=== PATIENT | female | born 1975 | race Caucasian/White ===

== ENCOUNTER 2018-04-20 19:51 | Emergency (ER) ==
[2018-04-20 20:00] VITALS: BP 122/83; TEMP 97.8; BMI 43.8
--- NOTE | 2018-04-20 20:09 | ED.PDOC ---
General ED Provider: Dr. CASSIUS MOREAU-ER Chief Complaint: Respiratory Complaint Stated Complaint: my sinuses are draining and my eye is red and mattering Time Seen by Physician: 20:07 Mode of Arrival: Walk-In Information Source: Patient Exam Limitations: No limitations Nursing and Triage Documentation Reviewed and Agree: Yes Does patient meet sepsis criteria?: No System Inflammatory Response Syndrome: Not Applicable Sepsis Protocol: For patient's 13 years and over: Temp is 96.8 and below OR 101 and greater Pulse >90 BPM Resp >20/minute Acutely Altered Mental Status Are patient's symptoms suggestive of a new infection, such as: -Pneumonia -Skin, Soft Tissue -Endocarditis -UTI -Bone, Joint Infection -Implantable Device -Acute Abdominal Infection -Wound Infection -Meningitis -Blood Stream Catheter Infection -Unknown Respiratory Complaint Exam - Respiratory Complaint/Exam Onset/Duration: several days Symptoms Are: Still present Timing: Constant Initial Severity: Mild Current Severity: Mild Location: Nose, Chest Character: Reports: Productive cough Aggravating: Reports: URI Associated Signs and Symptoms: Reports: URI, Nasal congestion, Sore throat. Denies: Rapid breathing, Dyspnea, Fever, Chills, Chest pain, Pleuritic chest pain, Wheezing, Hemoptysis, Dizziness, Calf pain, Calf swelling, Edema Home Oxygen Use: No Recent Stress Test: No Recent Echo/LV Function: No Current Antibiotic Use: No Current Asthma Medication Use: No Respiratory Distress: None Dysphagia Present: No Stridor Present: No JVD Present: No Accessory Muscle Use: No Retractions: Not Present Diminished Breath Sounds: No Sinus Tenderness: Maxillary Grunting Respirations: No Kussmaul Respirations: No Differential Diagnoses: Bronchitis Review of Systems - Review Of Systems Constitutional: Reports: No symptoms Eyes: Reports: Drainage Ears, Nose, Mouth, Throat: Reports: Nose discharge Respiratory: Reports: Cough Cardiac: Reports: No symptoms GI: Reports: No symptoms : Reports: No symptoms Musculoskeletal: Reports: No symptoms Skin: Reports: No symptoms Neurological: Reports: No symptoms Endocrine: Reports: No symptoms Hematologic/Lymphatic: Reports: No symptoms All Other Systems: Reviewed and Negative Past Medical History - Past Medical History Previously Healthy: Yes Endocrine: Reports: Unknown Cardiovascular: Reports: Unknown Respiratory: Reports: Unknown Hematological: Reports: Unknown Gastrointestinal: Reports: Unknown Genitourinary: Reports: Unknown Neuro/Psych: Reports: Unknown Musculoskeletal: Reports: Unknown Cancer: Reports: Unknown Last Menstrual Period: NA - Surgical History General Surgical History: Reports: Unknown - Family History Family History: Reports: Unknown - Social History Smoking Status: Current every day smoker, Light tobacco smoker Hx Substance Use: No Alcohol Screening: None - Immunizations Tetanus Shot up to Date: No Physical Exam - Physical Exam Appearance: Well-appearing, No pain distress, Well-nourished Eyes: Conjunctiva inflammed ENT: Rhinorrhea Neck: Supple Respiratory: Rhonchi Cardiovascular: RRR, Pulses normal, No rub, No murmur GI/: Soft, Nontender, No masses, Bowel sounds normal, No Organomegaly Musculoskeletal: Normal strength, ROM intact, No edema, No calf tenderness Skin: Warm, Dry, Normal color Neurological: Sensation intact, Motor intact, Reflexes intact, Cranial nerves intact, Alert, Oriented Psychiatric: Affect appropriate, Mood appropriate Critical Care Note - Critical Care Note Total Time (mins): 0 Course - Course Vital Signs: Temp Pulse Resp BP Pulse Ox 04/20/18 19:52 97.8 F 65 20 122/83 95 Departure - Departure Time of Disposition: 20:09 Disposition: HOME SELF-CARE Discharge Problem: Conjunctivitis Qualifiers: Conjunctivitis type: acute Acute conjunctivitis type: unspecified Laterality: right Qualified Code(s): H10.31 - Unspecified acute conjunctivitis, right eye Sinusitis Qualifiers: Sinusitis location: unspecified location Chronicity: acute Recurrence: non- recurrent Qualified Code(s): J01.90 - Acute sinusitis, unspecified Instructions: Conjunctivitis (ED) Condition: Good Pt referred to PMD for follow-up: Yes IPMP verified?: No Additional Instructions: aUgmentin 875mg bid x10 days---ciloxan eye drops 1 drop into the eyes tid x 7 days--f/u wtih pcp if not imnproving in a few days Allergies/Adverse Reactions: Allergies No Known Allergies Allergy (Unverified 04/20/18 20:00) Home Medications: Ambulatory Orders 1 [No Reported Medications] 04/20/18 Disposition Discussed With: Patient
== END 2018-04-20 20:15 | disposition home or self-care (01) ==
LOC: ED 19:51
DX: J01.90 Acute sinusitis, unspecified (principal); H10.31 Unspecified acute conjunctivitis, right eye; F17.210 Nicotine dependence, cigarettes, uncomplicated
CPT/HCPCS: 99282

== ENCOUNTER 2018-05-26 09:38 | Emergency (ER) ==
[2018-05-26 09:48] VITALS: BP 135/87; TEMP 98.1; BMI 43.9
[2018-05-26] MEDS ORDERED: ALBUTEROL 0.083% NEB NEB STA (09:57)
--- NOTE | 2018-05-26 09:59 | ED.PDOC ---
General ED Provider: Dr. CASSIUS RITTER Chief Complaint: Sore Throat Stated Complaint: Severe Throat and ear aching. States awakening this morning with a sore throat and left ear ache. Has had fever. State it is painful to swallow. Does not have tylenol or motrin at home. Time Seen by Physician: 09:45 Mode of Arrival: Walk-In Information Source: Patient Exam Limitations: No limitations Nursing and Triage Documentation Reviewed and Agree: Yes Does patient meet sepsis criteria?: No If yes, has appropriate treatment been initiated?: No System Inflammatory Response Syndrome: Not Applicable Sepsis Protocol: For patient's 13 years and over: Temp is 96.8 and below OR 101 and greater Pulse >90 BPM Resp >20/minute Acutely Altered Mental Status Are patient's symptoms suggestive of a new infection, such as: -Pneumonia -Skin, Soft Tissue -Endocarditis -UTI -Bone, Joint Infection -Implantable Device -Acute Abdominal Infection -Wound Infection -Meningitis -Blood Stream Catheter Infection -Unknown Respiratory Complaint Exam - Respiratory Complaint/Exam Onset/Duration: This AM Symptoms Are: Worse Timing: Constant Current Severity: Moderate Location: Nose, Throat, Chest Character: Reports: Non-productive cough Aggravating: Reports: URI, Passive smoke exposure (active smoker) Associated Signs and Symptoms: Reports: Wheezing, Nasal congestion. Denies: Rapid breathing, Dyspnea, Fever, Chills, Chest pain, Pleuritic chest pain, Hemoptysis, Dizziness, Calf pain, Calf swelling, Edema, URI, Hoarseness, Sinus discomfort, Vomiting, Weight loss, Decreased oral intake, Increased thirst, Increased appetite, Increased urination Related History: Reports: Similar episode (1 month ago but stopped antibiotic after 5 days due to developing vaginal yeast infection) History of Healthcare-Acquired Pneumonia: No Related Surgical History: Reports: None Pulmonary Embolism Risk Factors: None Cardiac Risk Factors: Reports: None Pseudomonas Risk Factors: Reports: None Tuberculosis Risk Factors: Reports: None Status Asthmaticus Risk Factors: Reports: Prior ICU admit Home Oxygen Use: No Recent Stress Test: No Recent Echo/LV Function: No Current Antibiotic Use: Yes Current Asthma Medication Use: No Respiratory Distress: Mild Inadequate Respiratory Effort: No Dysphagia Present: Yes Stridor Present: No JVD Present: No Accessory Muscle Use: No Retractions: Not Present Diminished Breath Sounds: No Prolonged Respiration: Expiratory phase Sinus Tenderness: None Differential Diagnoses: Bronchospasm, URI, Influenza, Other (tonsillitis) Review of Systems - Review Of Systems Constitutional: Reports: Chills, Fever, Malaise Eyes: Reports: No symptoms Ears, Nose, Mouth, Throat: Reports: No symptoms, Throat pain Respiratory: Reports: Cough, Wheezing Cardiac: Reports: No symptoms GI: Reports: No symptoms : Reports: No symptoms Musculoskeletal: Reports: No symptoms Skin: Reports: No symptoms Neurological: Reports: No symptoms Endocrine: Reports: No symptoms Hematologic/Lymphatic: Reports: No symptoms All Other Systems: Reviewed and Negative Past Medical History - Past Medical History Previously Healthy: Yes Endocrine: Reports: Unknown Cardiovascular: Reports: Unknown Respiratory: Reports: Unknown Hematological: Reports: Unknown Gastrointestinal: Reports: Unknown Genitourinary: Reports: Unknown Neuro/Psych: Reports: Unknown Musculoskeletal: Reports: Unknown Cancer: Reports: Unknown Last Menstrual Period: UNKNOWN - Surgical History General Surgical History: Reports: Unknown - Family History Family History: Reports: Unknown - Social History Smoking Status: Current every day smoker, Light tobacco smoker Hx Substance Use: No Alcohol Screening: None Physical Exam - Physical Exam Appearance: Ill-appearing, Obese Ill-appearing: Mild Pain Distress: None Eyes: LILLIAN, EOMI, Conjunctiva clear ENT: Ears normal, Nose normal, Oropharynx normal (pharynx inflamed, tonsils inflamed with greyish white exudate), Erythema Neck: Supple Respiratory: Breath sounds equal, Breath sounds diminished, Wheezes Cardiovascular: RRR, Pulses normal, No rub, No murmur GI/: Soft, Nontender, No masses, Bowel sounds normal, No Organomegaly, Tender (mid epigastrium) Musculoskeletal: Normal strength, ROM intact, No edema, No calf tenderness Skin: Warm, Dry, Normal color Neurological: Sensation intact, Motor intact, Reflexes intact, Cranial nerves intact, Alert, Oriented Psychiatric: Affect appropriate, Mood appropriate Critical Care Note - Critical Care Note Total Time (mins): 0 Course - Course Hematology/Chemistry: 05/26/18 10:20 05/26/18 10:20 Orders, Labs, Meds: Lab Review 05/26/18 05/26/18 05/26/18 10:10 10:10 10:20 WBC 10.39 H RBC 4.95 Hgb 13.2 Hct 40.9 MCV 82.6 MCH 26.7 L MCHC 32.3 RDW Coeff of Neville 15.0 H Plt Count 246 Immature Gran % (Auto) 0.3 Neut % (Auto) 74.0 Lymph % (Auto) 17.9 [place] % (Auto) 5.4 Eos % (Auto) 2.1 Baso % (Auto) 0.3 Immature Gran # (Auto) 0.0 Neut # (Auto) 7.7 H Lymph # (Auto) 1.9 [place] # (Auto) 0.6 Eos # (Auto) 0.2 Baso # (Auto) 0.0 Sodium Potassium Chloride Carbon Dioxide Anion Gap BUN Creatinine Estimated GFR (MDRD) BUN/Creatinine Ratio Glucose Calcium Total Bilirubin AST ALT Alkaline Phosphatase Total Protein Albumin Globulin Albumin/Globulin Ratio Urine Color Urine Clarity Urine pH Ur Specific [place] Urine Protein Urine Glucose (UA) Urine Ketones Urine Blood Urine Nitrite Urine Bilirubin Urine Urobilinogen Ur Leukocyte Esterase Influ A Molecular Assay Negative by naat Influ B Molecular Assay Negative by naat RSV Antigen Negative by naat 05/26/18 05/26/18 10:20 10:42 WBC RBC Hgb Hct MCV MCH MCHC RDW Coeff of [place] Plt Count Immature Gran % (Auto) Neut % (Auto) Lymph % (Auto) [place] % (Auto) Eos % (Auto) Baso % (Auto) Immature Gran # (Auto) Neut # (Auto) Lymph # (Auto) [place] # (Auto) Eos # (Auto) Baso # (Auto) Sodium 141.0 Potassium 4.09 Chloride 106.5 Carbon Dioxide 25.4 Anion Gap 13.19 BUN 10.1 Creatinine 0.65 Estimated GFR (MDRD) 99.00 BUN/Creatinine Ratio 15.53 Glucose 100.7 Calcium 8.74 Total Bilirubin 0.48 AST 32.3 ALT 21.6 Alkaline Phosphatase 64.4 Total Protein 7.54 Albumin 4.05 Globulin 3.49 Albumin/Globulin Ratio 1.16 Urine Color Yellow Urine Clarity Clear Urine pH 7.5 Ur Specific Ming[place] 1.015 Urine Protein Negative Urine Glucose (UA) Negative Urine Ketones Negative Urine Blood Negative Urine Nitrite Negative Urine Bilirubin Negative Urine Urobilinogen 0.2 Ur Leukocyte Esterase Negative Influ A Molecular Assay Influ B Molecular Assay RSV Antigen Orders Category Date Time Status NEBULIZER TREATMENT Stat CARDIO 05/26/18 09:57 Completed NEBULIZER TREATMENT Stat CARDIO 05/26/18 09:57 Completed CBC W/ AUTO DIFF Stat LAB 05/26/18 10:20 Completed CMP [COMPREHENSIVE METABOLIC PANEL] Stat LAB 05/26/18 10:20 Completed FLU A & B MOLECULAR [FLU A/B MOLECULAR] Stat LAB 05/26/18 10:10 Completed RAPID STREP SCREEN [MOLECULAR GROUP A STREP] Stat LAB 05/26/18 10:10 Completed RSV Stat LAB 05/26/18 10:10 Completed UA [URINALYSIS C & S IF INDICATED] Stat LAB 05/26/18 10:42 Completed Albuterol Sulfate 0.083% Neb [Albuterol 0.083% Neb] MEDS 05/26/18 09:57 Discontinued 1 vial NEB ONCE STA CHEST, 2 VIEWS PA & LAT Stat RADS 05/26/18 09:58 Completed Medications Discontinued Medications Generic Name Dose Route Start Last Admin Trade Name Freq PRN Reason Stop Dose Admin Albuterol Sulfate 1 vial 05/26/18 09:57 05/26/18 10:27 Albuterol 0.083% Neb NEB 05/26/18 09:58 1 vial ONCE STA Administration Vital Signs: Temp Pulse Resp BP Pulse Ox 05/26/18 09:39 98.1 F 80 20 135/87 94 L Departure - Departure Time of Disposition: 11:20 Disposition: HOME SELF-CARE Discharge Problem: Acute tonsillitis, Serous otitis media Instructions: Tonsillitis (ED), Serous Otitis Media (ED) Condition: Good Pt referred to PMD for follow-up: Yes IPMP verified?: No Additional Instructions: Stay well hydrated Tylenol or advil for pain /temp elevation above 101 deg Take meds as directed Robitussin DM for pain as needed for coughing Prescriptions: Azithromycin [Zithromax] 250 mg PO DAILY #6 tablet Allergies/Adverse Reactions: Allergies No Known Allergies Allergy (Verified 05/26/18 09:48) Home Medications: Ambulatory Orders Azithromycin [Zithromax] 250 mg PO DAILY #6 tablet 05/26/18 Disposition Discussed With: Patient
--- NOTE | 2018-05-26 10:46 | DI ---
EXAM: CHEST FRONTAL AND LATERAL VIEWS HISTORY: Cough, wheezing. COMPARISON: None FINDINGS: Mildly prominent heart size. No acute infiltrates are seen. No vascular congestion. The re is no consolidation, visible pleural fluid or pneumothorax. Bones reveal no acute fracture. IMPRESSION: No acute cardiopulmonary process.
== END 2018-05-26 11:57 | disposition home or self-care (01) ==
LOC: ED 09:38
DX: J03.90 Acute tonsillitis, unspecified (principal); H65.90 Unspecified nonsuppurative otitis media, unspecified ear; F17.210 Nicotine dependence, cigarettes, uncomplicated
CPT/HCPCS: 36415; 80053; 81001; 85025; 87502; 87651; 87801; 94640; 99283

== ENCOUNTER 2018-07-14 10:55 | Emergency (ER) | payer OTHER ==
[2018-07-14 11:00] VITALS: BP 138/83; TEMP 98.2; BMI 42.8
--- NOTE | 2018-07-14 11:30 | ED.PDOC ---
General ED Provider: Dr. CASSIUS RITTER Chief Complaint: Extremity Swelling/Pain Stated Complaint: Painful Rt Shoulder and upper back Time Seen by Physician: 11:15 Mode of Arrival: Walk-In Information Source: Patient Exam Limitations: No limitations Primary Care Provider: TATIANA HESTER Nursing and Triage Documentation Reviewed and Agree: Yes Does patient meet sepsis criteria?: No System Inflammatory Response Syndrome: Not Applicable Sepsis Protocol: For patient's 13 years and over: Temp is 96.8 and below OR 101 and greater Pulse >90 BPM Resp >20/minute Acutely Altered Mental Status Are patient's symptoms suggestive of a new infection, such as: -Pneumonia -Skin, Soft Tissue -Endocarditis -UTI -Bone, Joint Infection -Implantable Device -Acute Abdominal Infection -Wound Infection -Meningitis -Blood Stream Catheter Infection -Unknown Musculoskeletal Complaint Exam - Shoulder Pain Complaint/Exam Mechanism of Injury: Reports: No known trauma Onset/Duration: 0400 hrs today Symptoms Are: Still present Timing: Constant Initial Severity: Moderate Current Severity: Moderate Location: Reports: Discrete Character: Reports: Sharp Alleviating: Reports: Rest Aggravating: Reports: Movement, Lifting Associated Signs and Symptoms: Denies: Swelling, Redness, Bruising, Fever, Weakness, Numbness, Tingling Related History: Reports: Similar episode, Dominant hand right. Denies: Occupational injury Non-Orthopedic Risk Factors: Denies: Referred pain from chest DVT Risk Factors: Reports: None Septic Arthritis Risk Factors: Reports: None Shoulder Findings: Absent: Swelling, Ecchymosis, Abnormal contour, Rotation, Ligamentous instability, Laceration, Erythema, Warmth, Blisters, Foreign body, Adson's Sign Tenderness: Present: AC joint, Rotator cuff muscles Limited Range of Motion: Present: Abduction, External rotation Differential Diagnoses: Strain, Other (Thoracic somatic dysfunction ) Review of Systems - Review Of Systems Constitutional: Reports: No symptoms Eyes: Reports: No symptoms Ears, Nose, Mouth, Throat: Reports: No symptoms Respiratory: Reports: No symptoms Cardiac: Reports: No symptoms GI: Reports: No symptoms : Reports: No symptoms Musculoskeletal: Reports: No symptoms Skin: Reports: No symptoms Neurological: Reports: No symptoms Endocrine: Reports: No symptoms Hematologic/Lymphatic: Reports: No symptoms All Other Systems: Reviewed and Negative Past Medical History - Past Medical History Previously Healthy: Yes Endocrine: Reports: Unknown Cardiovascular: Reports: Unknown Respiratory: Reports: Unknown Hematological: Reports: Unknown Gastrointestinal: Reports: Unknown Genitourinary: Reports: Unknown Neuro/Psych: Reports: Unknown Musculoskeletal: Reports: Unknown Cancer: Reports: Unknown Last Menstrual Period: na - Surgical History General Surgical History: Reports: Unknown - Family History Family History: Reports: Unknown - Social History Smoking Status: Current some day smoker Hx Substance Use: No Alcohol Screening: None - Immunizations Tetanus Shot up to Date: No Physical Exam - Physical Exam Appearance: Well-appearing, No pain distress, Well-nourished Eyes: LILLIAN, EOMI, Conjunctiva clear ENT: Ears normal, Nose normal, Oropharynx normal Respiratory: Airway patent, Breath sounds clear, Breath sounds equal, Respirations nonlabored Cardiovascular: RRR, Pulses normal, No rub, No murmur GI/: Soft, Nontender, No masses, Bowel sounds normal, No Organomegaly Musculoskeletal: Normal strength, ROM intact (Rt shoulder restricted. Somatic Dysfunction Rt T1-T2 and T3-4), No edema, No calf tenderness Skin: Warm, Dry, Normal color Neurological: Sensation intact, Motor intact, Reflexes intact, Cranial nerves intact, Alert, Oriented Psychiatric: Affect appropriate, Mood appropriate Interpretation - Radiology Interpretation Radiology Interpretation By: Radiologist (Shoulder xray and Chest Xray WNL) Procedures - Additional Procedures Additional Procedures: Other (OMT to Rt Thoracic regions with symptomatic resolution of presenting symptoms) Critical Care Note - Critical Care Note Total Time (mins): 0 Course - Course Orders, Labs, Meds: Orders Category Date Time Status Ketorolac Tromethamine [Toradol] MEDS 07/14/18 11:33 Discontinued 30 mg IM ONCE STA CHEST, 2 VIEWS PA & LAT Stat RADS 07/14/18 11:33 Completed SHOULDER, RIGHT MIN 2V Stat RADS 07/14/18 11:33 Completed Medications Discontinued Medications Generic Name Dose Route Start Last Admin Trade Name Freq PRN Reason Stop Dose Admin Ketorolac Tromethamine 30 mg 07/14/18 11:33 07/14/18 12:08 Toradol IM 07/14/18 11:34 30 mg ONCE STA Administration Vital Signs: Temp Pulse Resp BP Pulse Ox 07/14/18 10:56 98.2 F 66 16 138/83 94 L Departure - Departure Time of Disposition: 13:50 Disposition: HOME SELF-CARE Discharge Problem: Shoulder pain, right, Somatic dysfunction of costovertebral joint structure Instructions: Shoulder Pain (ED), Exercises for Shoulder Flexion and Extension (ED), Exercises for Shoulder Abduction and Adduction (ED) Condition: Good Pt referred to PMD for follow-up: Yes IPMP verified?: No Additional Instructions: Exercises Ibuprofen 200 mg 3 tabs q 6 hrs as needed Warm moist heat to area of discomfort Allergies/Adverse Reactions: Allergies No Known Allergies Allergy (Verified 05/26/18 09:48) Home Medications: Ambulatory Orders 1 [No Reported Medications] 07/14/18 Disposition Discussed With: Patient, Family
[2018-07-14] MEDS ORDERED: TORADOL IM STA (11:33)
--- NOTE | 2018-07-14 12:45 | DI ---
EXAM: Three views of the right shoulder HISTORY: Pain TECHNIQUE: Internal and external AP frontal views of the right shoulder and a axial Y view were obta ined. FINDINGS: The humeral head is seen in normal position. No acute fractures are seen. The soft tissu es are normal. IMPRESSION: No acute fracture dislocation seen within the right shoulder.
--- NOTE | 2018-07-14 12:47 | DI ---
EXAM: Two-view chest HISTORY: Pain TECHNIQUE: Frontal and lateral views of the chest were obtained. Comparison 05/26/2018. FINDINGS: The heart is normal size. Lungs are clear. The pulmonary vasculature appears normal. Th e costophrenic angles are sharp. IMPRESSION: No active cardiopulmonary disease.
== END 2018-07-14 14:17 | disposition home or self-care (01) ==
LOC: ED 10:55
DX: M25.511 Pain in right shoulder (principal); M99.08 Segmental and somatic dysfunction of rib cage; F17.210 Nicotine dependence, cigarettes, uncomplicated
CPT/HCPCS: 96372; 99282

== ENCOUNTER 2018-08-03 06:40 | Emergency (ER) ==
[2018-08-03 06:51] VITALS: BP 123/80; TEMP 97.6; BMI 44.3
--- NOTE | 2018-08-03 08:05 | CT ---
EXAM: CT cervical spine. HISTORY: Neck pain with arm movement. TECHNIQUE: CT cervical spine without contrast. Detailed axial sections. Coronal and sagittal re-fo rmations. COMPARISON: None FINDINGS: No fracture or loss of vertebral body height. There is no spondylolisthesis. Facet joints are cover ed. Lateral masses of C1 and C2 are normally aligned and the odontoid process is intact. Degenerat vivien changes of the spine lead to multilevel mild central canal stenosis. The central canal is obscur ed by artifact at some levels. Paraspinal soft tissues are grossly unremarkable. IMPRESSION: Mild degenerative disc and facet disease leads to multilevel mild central canal stenosis. Some limitations as described. Consider correlation with MRI if indicated clinically.
--- NOTE | 2018-08-03 08:46 | ED.PDOC ---
General ED Provider: Dr. MELE NAZARIO Chief Complaint: Neck Pain Non-Injury Stated Complaint: NECK PAIN RIGHT SIDE NEGATIVE TRAUMA CHRONIC ISSUE Time Seen by Physician: 07:00 (SEEN WITH MATHIEU AT ALL TIMES NO TRAUMA ) Mode of Arrival: Walk-In Information Source: Patient Exam Limitations: No limitations Primary Care Provider: TATIANA HESTER Nursing and Triage Documentation Reviewed and Agree: Yes Does patient meet sepsis criteria?: No System Inflammatory Response Syndrome: Not Applicable Sepsis Protocol: For patient's 13 years and over: Temp is 96.8 and below OR 101 and greater Pulse >90 BPM Resp >20/minute Acutely Altered Mental Status Are patient's symptoms suggestive of a new infection, such as: -Pneumonia -Skin, Soft Tissue -Endocarditis -UTI -Bone, Joint Infection -Implantable Device -Acute Abdominal Infection -Wound Infection -Meningitis -Blood Stream Catheter Infection -Unknown Musculoskeletal Complaint Exam - Neck Pain Complaint/Exam Mechanism of Injury: Reports: No known trauma, Other (ONSET 3 MONTHS AGO SAME PAIN TODAY ) Onset/Duration: CHRONIC BUT THIS FALRE UP IS 1 DAY OLD NO CHEST PAIN NO S.O.B Symptoms Are: Still present Timing: Constant Episodes Lasting: Hours Initial Severity: Moderate Current Severity: Moderate Location: Reports: Discrete Character: Reports: Aching Aggravating: Reports: Movement Alleviating: Reports: Position Associated Signs and Symptoms: Denies: Swelling, Redness, Bruising, Fever, Nuchal rigidity, Weakness, Headache, Paresthesia Related History: Reports: Similar episode (SEE ABOBE) Meningitis Risk Factors: Reports: None Cervical Spine Injury Risk Factors: Reports: None Related Surgical History: Reports: None Carotid Bruit Present: No Pain on Passive Flexion: No Positive Kernig's Sign: No ROM Limited In: Present: Right, Side bending. Absent: Flexion, Extension Tenderness: Absent: Midline Radiates to: Present: Right arm Focal Weakness: Present: None Focal Sensory Loss: Reports: None Nexus Low Risk Criteria: No post-midline CS tender, No evidence of intoxicat., No Altered LOC, No focal neuro deficit, No distracting injuries Differential Diagnoses: Sprain, Strain Review of Systems - Review Of Systems Constitutional: Reports: No symptoms Eyes: Reports: No symptoms Ears, Nose, Mouth, Throat: Reports: No symptoms Respiratory: Reports: No symptoms Cardiac: Reports: No symptoms GI: Reports: No symptoms : Reports: No symptoms Musculoskeletal: Reports: Neck pain Skin: Reports: No symptoms Neurological: Reports: No symptoms Endocrine: Reports: No symptoms Hematologic/Lymphatic: Reports: No symptoms All Other Systems: Reviewed and Negative Past Medical History - Past Medical History Previously Healthy: Yes Endocrine: Reports: Unknown Cardiovascular: Reports: Unknown Respiratory: Reports: Unknown Hematological: Reports: Unknown Gastrointestinal: Reports: Unknown Genitourinary: Reports: Unknown Neuro/Psych: Reports: Unknown Musculoskeletal: Reports: Unknown Cancer: Reports: Unknown Last Menstrual Period: HYST 2007 - Surgical History General Surgical History: Reports: Unknown - Family History Family History: Reports: Unknown - Social History Smoking Status: Current some day smoker, Light tobacco smoker Hx Substance Use: No Alcohol Screening: None - Immunizations Tetanus Shot up to Date: No Physical Exam - Physical Exam Appearance: Well-appearing, No pain distress, Well-nourished Eyes: LILLIAN, EOMI, Conjunctiva clear ENT: Ears normal, Nose normal, Oropharynx normal Respiratory: Airway patent, Breath sounds clear, Breath sounds equal, Respirations nonlabored Cardiovascular: RRR, Pulses normal, No rub, No murmur GI/: Soft, Nontender, No masses, Bowel sounds normal, No Organomegaly Musculoskeletal: Normal strength, ROM intact, No edema, No calf tenderness Skin: Warm, Dry, Normal color Neurological: Sensation intact, Motor intact, Reflexes intact, Cranial nerves intact, Alert, Oriented Psychiatric: Affect appropriate, Mood appropriate Interpretation - Radiology Interpretation Radiology Interpretation By: Radiologist Radiology Results: Positive (DJD FACET DISEASE STENOSIS . M.R.I RECOMMENDED) Critical Care Note - Critical Care Note Total Time (mins): 0 Course - Course Orders, Labs, Meds: Orders Category Date Time Status CT CERVICAL SPINE W/O CONTRAST Stat RADS 08/03/18 07:21 Completed Vital Signs: Temp Pulse Resp BP Pulse Ox 08/03/18 06:41 97.6 F 75 20 123/80 97 Departure - Departure Time of Disposition: 08:49 Disposition: HOME SELF-CARE Discharge Problem: Neck pain Instructions: Cervical Sprain (ED), Neck Pain (ED), Acute Neck Pain (ED), Chronic Neck Pain (DC) Condition: Good Pt referred to PMD for follow-up: Yes IPMP verified?: No Additional Instructions: Please call your Family Physician as soon as possible to schedule a follow-up appointment.TAKE REPORT I GAVE YOU FROM [facility]. M.R.I IS NEEDED Allergies/Adverse Reactions: Allergies No Known Allergies Allergy (Verified 08/03/18 06:51) Home Medications: Ambulatory Orders 1 [No Reported Medications] 07/14/18
== END 2018-08-03 09:03 | disposition home or self-care (01) ==
LOC: ED 06:40
DX: M54.2 Cervicalgia (principal); F17.210 Nicotine dependence, cigarettes, uncomplicated
CPT/HCPCS: 99283